=== PATIENT | male | born 1990 | race Caucasian/White ===

== ENCOUNTER → 2019-12-18 13:06 | Outpatient (CLI) | payer OTHER, SELFPAY ==
[2019-12-19 07:53] LABS: COVID19 Sendout Not Detected (Not Detect)
== END ==
PROVIDERS: Visit Provider Physician Assistant
DX: Z11.59 Encounter for screening for other viral diseases (principal)
CPT/HCPCS: 87635

== ENCOUNTER 2019-12-20 06:32 | Day surgery (SDC) | payer OTHER, SELFPAY ==
[2019-12-14 15:14] VITALS: BMI 27.4
[2019-12-20] VITALS (7 sets, daily range): BP systolic 107–126; BP diastolic 54–68; PULSE 48–60; RESP 13–18; TEMP 36.3–36.4; O2SAT 98–100; BMI 27.4
--- NOTE | 2019-12-20 07:27 | SUR.OPER ---
Supine on padded OR bed, head on pillow, arms secured on padded arm boards at <90 degrees abduction, legs uncrossed, safety belt at thigh, tape over blanket over lower legs.
--- NOTE | 2019-12-20 07:29 | PM.HP.1 ---
History of Present Illness History of Present Illness Date Patient Seen: 12/20/19 Time Patient Seen: 07:30 Chief complaint: 13686 Narrative: 29-year-old male with a symptomatic right inguinal hernia here for elective repair. The been no interval changes in his health. He has no significant past medical or surgical history. Patient History Medical History Achilles tendinitis of both lower extremities (Acute) Surgical History History of tonsillectomy (Acute) Family & Social History Family History Grandfather Diabetes mellitus Cancer Social History: household members other Tobacco & Substance use: Tobacco type smokeless tobacco Smoking Status Never smoker alcohol intake never Substance Use Type does not use Meds Home Medications and Allergies Home Medications Medication Instructions Recorded Confirmed Type ibuprofen 400 mg tablet 400 mg PO TID 07/11/19 12/20/19 History Allergies Allergy/AdvReac Type Severity Reaction Status Date / Time amoxicillin [From Augmentin] Allergy Severe Rash - Verified 12/20/19 07:16 vomiting clavulanic acid Allergy Severe Rash - Verified 12/20/19 07:16 [From Augmentin] vomiting Review of Systems Review of Systems Narrative: A 10 point review of systems is negative except as noted in the HPI Exam Narrative Exam Narrative: General-no acute distress, well nourished HEENT-moist mucous membranes, no scleral icterus Neck-supple, no lymphadenopathy Chest- non labored respirations, clear to auscultation bilaterally Cardiac-regular rate no peripheral edema Abdomen-small right inguinal hernia reducible Extremities-warm, well perfused Neurological-alert and oriented, no focal deficits Assessment & Plan Assessment and plan (1) Right inguinal hernia: Status: Acute Assessment & Plan narrative: 29-year-old man with a symptomatic reducible right inguinal hernia here for an open inguinal hernia repair with mesh. We discussed the technical details of the operation as well as the surgical risks including bleeding infection testicular ischemia infertility chronic pain. His questions have been answered he is in agreement with this plan will proceed to the operating room COVID-19 COVID-19 status: Negative
[2019-12-20] MEDS: LACTATED RINGERS 1,000 ML 100 ML IV (07:41)
[2019-12-20] MEDS: CLINDAMYCIN 900 MG/50 ML PIGGYBACK 50 MG IV (07:46)
[2019-12-20] MEDS: BUPIVACAINE 0.25% (PF) VIAL 30 ML INJ (08:02)
--- NOTE | 2019-12-20 08:52 | P.OP_ITS ---
Operative Date/Time/Diagnoses Date of procedure: 12/20/19 Time of procedure: 08:52 Pre-op diagnosis: Right inguinal Post-op diagnosis: same Procedure & Clinicians Procedure: Open right inguinal hernia repair with mesh Same procedure as scheduled: Yes Indications: Symptomatic reducible right inguinal hernia Surgeon: John Nolan Yes if Unassisted: Yes Anesthesia Type: General Operative Notes Findings: Direct floor defect Estimated Blood Loss (mL): 10 Procedure in detail: The patient was placed supine on the table and bilateral lower extremity compression devices were applied. Anesthesia was induced they were intubated with an LMA and received 2g of Ancef. A time-out was performed. They were prepped and draped in sterile fashion. The right external inguinal ring and the anterior superior iliac crest were identified and marked. 1 finger breath above the right inguinal ligament the skin was infiltrated with 0.25% bupivacaine. The skin incision was made here and the subcutaneous tissues were divided with electrocautery exposing the external oblique aponeurosis which was then opened along the direction of its fibers. The ilioinguinal nerve was identified on the anterior aspect of the cord and protected. Using a kittner cord was carefully dissected away from the inguinal canal adjacent to the pubic tubercle. The cord was freed and encircled with a [place] drain. A direct floor defect was identified. I identified the iliohypogastric nerve emerging through the medial aspect of the external oblique aparoneurosis. The cremasteric fibers surrounding the cord were divided using electrocautery. The vas deferens and the testicular vessels were preserved and protected. I skeletonized the cremasteric fibers away from the vas deferens and testicular blood supply looking for an indirect hernia. None was found. I selected a 7x 15 cm lightweight Pro Loop hernia mesh. The inferior medial aspect of the mesh was anchored to the periosteum of the pubic tubercle such that there was approximately 2 cm of tubercle overlap with 0 Prolene and then was run continuously along the inferior edge of the mesh to the shelving edge of the inguinal ligament. Interrupted 3 0 Vicryl suture was used to anchor the superior aspect of the mesh to the conjoined tendon in several places. The tails were then reapproximated around the spermatic cord loosely. The tails of the mesh were then tucked under the external oblique aponeurosis. The repair was checked for hemostasis. The wound was irrigated with sterile saline. The external oblique aponeurosis was reapproximated in a running fashion using 3 0 Vicryl. The subcutaneous tissues were reapproximated with 3 0 Vicryl skin closed with 4 0 Monocryl followed by the application of Dermabond. At the end of the operation ensure that both testicles were within the scrotum. The sponge instrument count at the end operation was correct. The patient emerged from anesthesia was extubated and transferred to the postoperative care unit in stable condition. A total of 30 ml of of 0.25% bupivicaine was used to infiltrate the skin. Post-operative Condition: stable Disposition: same day surgery
--- NOTE | 2019-12-20 09:23 | SUR.PHASEI ---
First 0859 note should be timed 0854, unable to edit
[2019-12-20] MEDS: OXYCODONE IR 5 MG TABLET PO (09:52)
== END 2019-12-20 10:15 | disposition home or self-care (01) ==
PROVIDERS: Referring Provider Surgery; Visit Provider Surgery
PROC: (CPT 49505; principal; 2019-12-20 07:45)
DX: K40.90 Unilateral inguinal hernia, without obstruction or gangrene, not specified as recurrent (principal)
CPT/HCPCS: 49505; C1781; J1100; J1885; J2250; J2405; J2704; J3010